=== PATIENT | female | born 1960 | race Caucasian/White ===

== ENCOUNTER 2019-04-25 08:13 | Day surgery (SDC) | payer BC, OTHER ==
[2019-04-18 10:30] LABS: BASOPHILS % (AUTO) 0.3 % (0-1); EOSINOPHILS # (AUTO) 0.1 X10'3 (0-0.9); EOSINOPHILS % (AUTO) 2.5 % (0-6); LYMPHOCYTES # (AUTO) 0.8 X10'3 (1.1-4.8); LYMPHOCYTES % (AUTO) 13.9 % (21-51); MEAN CORPUSCULAR HEMOGLOBIN 29.9 PG (27.0-31.0); MEAN CORPUSCULAR HGB CONC 32.9 g/dL (33.0-36.5); MEAN CORPUSCULAR VOLUME 90.8 FL (78-98); MEAN PLATELET VOLUME 8.3 FL (7.4-10.4); MONOCYTES # (AUTO) 0.4 X10'3 (0-0.9); MONOCYTES % (AUTO) 7.9 % (2-12); NEUTROPHILS # (AUTO) 4.2 X10'3 (1.8-7.7); NEUTROPHILS % (AUTO) 75.4 % (42-75); PRE OP HEMOGLOBIN 12.8 g/dL (12.0-16.0); PRE OP PLATELET COUNT 225 X10'3 (140-440); RED BLOOD COUNT 4.29 X10'6 (4.20-5.60); RED CELL DISTRIBUTION WIDTH 12.9 % (11.5-14.5)
[2019-04-18 10:31] LABS: ALBUMIN 3.3 G/DL (3.4-5.0); ALKALINE PHOSPHATASE 58 IU/L (46-116); BLOOD UREA NITROGEN 18 MG/DL (7-18); BUN/CREATININE RATIO 26.9 (6.6-38.0); CALCIUM 8.9 MG/DL (8.5-10.1); CHLORIDE 107 MMOL/L (99-107); CREATININE 0.67 MG/DL (0.40-0.90); PRE OP ALT 27 U/L (30-65); PRE OP ANION GAP 4 (8-16); PRE OP AST 17 U/L (10-37); PRE OP BILIRUB, TOTAL 0.3 MG/DL (0.0-1.0); PRE OP GLUCOSE 80 MG/DL (70-104); PRE OP POTASSIUM 3.9 MMOL/L (3.4-5.1); PRE OP SODIUM 141 MMOL/L (135-145); TOTAL CARBON DIOXIDE 30.2 MMOL/L (24-32); TOTAL PROTEIN 6.7 G/DL (6.4-8.2); eGFR 90 ML/MIN
[2019-04-25] VITALS (10 sets, daily range): BP systolic 104–127; BP diastolic 68–74
[~2019-04-25] VITALS: Ht 165.1 cm; Wt 70.4 kg
[~2019-04-25 08:13] MED LIST: ESCI5TAB PO; ESTR1TAB19 PO
[2019-04-25] MEDS ORDERED: scopolamine 1.5mg patch.TD72 TD ONE (08:30)
[2019-04-25] MEDS ORDERED: ringers solution, lacted 1,000 ML IV SCH ×2 (08:30→10:11)
[2019-04-25] MEDS ORDERED: famotidine 20mg tablet PO ONE (08:30)
[2019-04-25] MEDS ORDERED: cefazolin/dext.iso 2gm/100 ML IV ONE (08:30)
[2019-04-25] MEDS ORDERED: bacitracin 15gm ointment TP ONE (09:44)
[2019-04-25] MEDS ORDERED: ceFAZolin 1000mg inj ONE (09:44)
[2019-04-25] MEDS ORDERED: sevoflurane 250ml liquid IH ONE (10:11)
[2019-04-25] MEDS ORDERED: dexamethasone sod phosphate 10mg/ml inj ONE (10:11)
[2019-04-25] MEDS ORDERED: acetaminophen 1,000mg/100ml IV 100 ML IV ONE (10:14)
[2019-04-25] MEDS ORDERED: ondansetron/PF 4mg/2ml inj IV PRN (10:15)
[2019-04-25] MEDS ORDERED: labetalol 20mg/4ml (5mg/ml) syringe IV PRN (10:15)
[2019-04-25] MEDS ORDERED: fentaNYL/PF 50MCG/1 ML 2ML syringe IV PRN ×2 (10:15)
[2019-04-25] MEDS ORDERED: hydrALAZINE 20mg/ml inj. IV PRN (10:15)
[2019-04-25] MEDS ORDERED: morphine 4 MG/ML inj SYRINge IV PRN ×2 (10:15)
[2019-04-25] MEDS ORDERED: morphine 10mg/ml inj. ONE (10:16)
[2019-04-25] MEDS ORDERED: propofol inj 20 ML IV ONE ×2 (10:34)
[2019-04-25] MEDS ORDERED: LIDOcaine 2% (20mg/ml) 5ml vial ONE (10:34)
[2019-04-25] MEDS ORDERED: ondansetron/PF 4mg/2ml inj ONE (10:34)
[2019-04-25] MEDS ORDERED: BUPIVAcaine/PF 2.5mg/ml (0.25%) 10ml vial ONE (10:55)
--- NOTE | 2019-04-25 11:15 | NUR ---
Received from OR via , accompanied by Anesthesiologist DR OLEARY and report given by Anesthesiolgist. AWAKENS TO VOICE. VITALS STABLE. SPLINT DI. SYDNI PAIN. FINGERS WARM AND PINK.
--- NOTE | 2019-04-25 11:55 | NUR ---
Report called to receiving nurse. Transferred via [facility]ED Belongings . Special Issues communicated to receiving nurse. AWAKE AND ORIENTED. VITALS STABLE. DRESSING DI. STATES PAIN MUCH IMPROVED. TO ORTHO RM [id number] AT THIS TIME.
--- NOTE | 2019-04-25 12:55 | NUR ---
AWAKE AND ORIENTED. VITALS STABLE. SYDNI PAIN. LUE IN A SIMPLE SLING. STATES TASHA IS NUMB. HOME WITH HER SPOUSE. AT THIS TIME.
== END 2019-04-25 12:55 | disposition home or self-care (01) ==
LOC: PAS 08:13
PROVIDERS: ATTEND Orthopaedic Surgery
DX: M77.12 Lateral epicondylitis, left elbow (principal); G89.18 Other acute postprocedural pain; Z79.899 Other long term (current) drug therapy; Z72.89 Other problems related to lifestyle; Z90.710 Acquired absence of both cervix and uterus; Z98.890 Other specified postprocedural states; F41.9 Anxiety disorder, unspecified
CPT/HCPCS: 24358; 36415; 64417; 76942; 80053; 82948; 85025; 93005; A6222; J0131; J0690; J1100; J2001; J2270; J2405; J2704; J3490; A4565; A6449; A7000; J7120

== ENCOUNTER 2021-06-17 12:37 | Emergency (ER) | payer BC, OTHER ==
[~2021-06-17] VITALS: Ht 165.1 cm; Wt 69.0 kg
[2021-06-17 13:34] LABS: BASOPHILS % (AUTO) 0.6 % (0-1); EOSINOPHILS # (AUTO) 0.5 X10'3 (0-0.9); EOSINOPHILS % (AUTO) 8.3 % (0-6); HEMATOCRIT 41.1 % (35.0-45.0); HEMOGLOBIN 13.7 g/dl (12.0-16.0); LYMPHOCYTES # (AUTO) 1.3 X10'3 (1.1-4.8); LYMPHOCYTES % (AUTO) 22.1 % (21-51); MEAN CORPUSCULAR HEMOGLOBIN 30.5 PG (27.0-31.0); MEAN CORPUSCULAR HGB CONC 33.2 g/dL (33.0-36.5); MEAN CORPUSCULAR VOLUME 91.7 FL (78-98); MONOCYTES # (AUTO) 0.3 X10'3 (0-0.9); MONOCYTES % (AUTO) 5.8 % (2-12); NEUTROPHILS # (AUTO) 3.8 X10'3 (1.8-7.7); NEUTROPHILS % (AUTO) 63.2 % (42-75); PLATELET COUNT 250 X10'3 (140-440); RED BLOOD COUNT 4.48 X10'6 (4.20-5.60); RED CELL DISTRIBUTION WIDTH 13.2 % (11.5-14.5); WHITE BLOOD COUNT 6.1 X10'3 (4.5-11.0)
[2021-06-17 13:40] LABS: ALANINE AMINOTRANSFERASE 24 U/L (12-78); ALBUMIN 3.7 G/DL (3.4-5.0); ALBUMIN/GLOBULIN RATIO 1.1 (1.1-1.5); ALKALINE PHOSPHATASE 43 IU/L (46-116); ANION GAP 9 (8-16); ASPARTATE AMINO TRANSFERASE 18 U/L (10-37); BILIRUBIN,TOTAL 0.4 MG/DL (0.1-1.0); BLOOD UREA NITROGEN 18 MG/DL (7-18); BUN/CREATININE RATIO 26.5 (6.6-38.0); CALCIUM 8.4 MG/DL (8.5-10.1); CHLORIDE 103 MMOL/L (99-107); CREATININE 0.68 MG/DL (0.40-0.90); GLUCOSE 95 MG/DL (70-104); POTASSIUM 3.6 MMOL/L (3.5-5.1); SODIUM 138 MMOL/L (135-145); TOTAL CARBON DIOXIDE 26.2 MMOL/L (24-32); eGFR 88 ML/MIN
[2021-06-17] MEDS ORDERED: aspirin 325mg tablet PO ONE (15:35)
[2021-06-17 16:31] VITALS: BP 98/64
== END 2021-06-17 16:45 | disposition home or self-care (01) ==
LOC: ER 12:37
DX: R07.89 Other chest pain (principal); R06.02 Shortness of breath; R11.0 Nausea; Z79.899 Other long term (current) drug therapy
CPT/HCPCS: 36415; 71045; 80053; 83880; 84484; 85025; 93005; 99285

== ENCOUNTER 2024-01-27 07:41 | Day surgery (SDC) | payer BC, OTHER ==
[2024-01-17 15:26] LABS: BASOPHILS % (AUTO) 0.3 % (0-1); EOSINOPHILS # (AUTO) 0.2 X10'3 (0-0.9); EOSINOPHILS % (AUTO) 3.7 % (0-6); LYMPHOCYTES # (AUTO) 1.4 X10'3 (1.1-4.8); LYMPHOCYTES % (AUTO) 23.6 % (21-51); MEAN CORPUSCULAR HEMOGLOBIN 31.3 PG (27.0-31.0); MEAN CORPUSCULAR VOLUME 92.2 FL (78-98); MEAN PLATELET VOLUME 7.8 FL (7.4-10.4); MONOCYTES # (AUTO) 0.4 X10'3 (0-0.9); MONOCYTES % (AUTO) 6.2 % (2-12); NEUTROPHILS % (AUTO) 66.2 % (42-75); PRE OP HEMOGLOBIN 13.6 g/dL (12.0-16.0); PRE OP PLATELET COUNT 269 X10'3 (140-440); PRE OP WHITE BLOOD COUNT 6.1 10'3 (4.8-10.8); RED BLOOD COUNT 4.34 X10'6 (4.20-5.60); RED CELL DISTRIBUTION WIDTH 12.6 % (11.5-14.5)
[2024-01-17 15:42] LABS: ALBUMIN 2.9 G/DL (3.4-5.0); ALBUMIN/GLOBULIN RATIO 1.1 (1.1-1.5); ALKALINE PHOSPHATASE 43 IU/L (46-116); BLOOD UREA NITROGEN 16 MG/DL (7-18); BUN/CREATININE RATIO 26.2 (10.0-20.0); CALCIUM 7.8 MG/DL (8.5-10.1); CHLORIDE 108 MMOL/L (99-107); CREATININE 0.61 MG/DL (0.40-0.90); PRE OP ALT 24 U/L (30-65); PRE OP ANION GAP 4 (8-16); PRE OP AST 20 U/L (10-37); PRE OP BILIRUB, TOTAL 0.4 MG/DL (0.0-1.0); PRE OP GLUCOSE 110 MG/DL (70-104); PRE OP POTASSIUM 3.6 MMOL/L (3.4-5.1); PRE OP SODIUM 141 MMOL/L (135-145); TOTAL CARBON DIOXIDE 28.7 MMOL/L (24-32); TOTAL PROTEIN 5.6 G/DL (6.4-8.2); eGFR > 90 ML/MIN
[~2024-01-27] VITALS: Ht 165.1 cm; Wt 68.1 kg
[~2024-01-27 07:41] MED LIST changes: -ESCI5TAB PO
[2024-01-27 07:50] VITALS: BP 106/63; PULSE 60; PULSE 98; RESP 16; TEMP 98.3; O2SAT 98
[2024-01-27] MEDS ORDERED: ringers solution, lacted 1,000 ML IV SCH (08:28)
[2024-01-27] MEDS ORDERED: famotidine 20mg tablet PO ONE (08:58)
[2024-01-27] MEDS ORDERED: BUPIVAcaine 2.5mg/ml inj 50ml vial (contains preservative) ONE (10:28)
[2024-01-27] MEDS ORDERED: bacitracin 15gm ointment TP ONE (10:28)
[2024-01-27] MEDS ORDERED: dexamethasone sod phosphate 10mg/ml inj ONE (11:37)
[2024-01-27] MEDS ORDERED: sevoflurane 250ml liquid IH ONE (11:37)
[2024-01-27] MEDS ORDERED: fentaNYL/PF 50MCG/1 ML 2ML syringe ONE (11:42)
[2024-01-27] MEDS ORDERED: midazolam 1 mg/ML 2ml injection ONE (11:44)
[2024-01-27] MEDS ORDERED: acetaminophen 1,000mg/100ml IV 100 ML IV ONE (11:48)
[2024-01-27] MEDS ORDERED: ondansetron/PF 4mg/2ml inj ONE (11:48)
[2024-01-27] MEDS ORDERED: propofol inj 20 ML IV ONE (11:48)
[2024-01-27] MEDS ORDERED: LIDOcaine 2% (20mg/ml) 5ml vial ONE (11:48)
[2024-01-27] MEDS ORDERED: ketorolac trometh. 30mg/ml inj. ONE (11:48)
[2024-01-27] MEDS: ringers solution, lacted 1,000 ML IV SCH (12:05)
[2024-01-27] MEDS ORDERED: morphine 4 MG/ML inj SYRINge IV PRN (12:05)
[2024-01-27] MEDS ORDERED: morphine 2 MG/ML inj. syringe IV PRN (12:05)
[2024-01-27] MEDS ORDERED: fentaNYL/PF 50MCG/1 ML 2ML syringe IV PRN ×2 (12:05)
[2024-01-27] MEDS ORDERED: labetalol 20mg/4ml (5mg/ml) syringe IV PRN (12:05)
[2024-01-27] MEDS ORDERED: proMETHazine 25mg rectal suppository RC PRN (12:05)
[2024-01-27] MEDS ORDERED: ondansetron/PF 4mg/2ml inj IV PRN (12:05)
[2024-01-27] MEDS ORDERED: proCHLORperazine 10 MG/2 ml inj IV PRN (12:05)
[2024-01-27] MEDS ORDERED: enalaprilat dihydrate 2.5mg/2ml vial IV PRN (12:05)
[2024-01-27] MEDS: BUPIVAcaine 2.5mg/ml inj 50ml vial (contains preservative) SQ ONE (12:16)
[2024-01-27] MEDS: bacitracin 15gm ointment TP ONE (12:17)
[2024-01-27 12:31] VITALS: BP 122/63; PULSE 69; RESP 16; O2SAT 100
[2024-01-27 12:40] VITALS: BP 122/73; PULSE 67; RESP 11; O2SAT 99
[2024-01-27] MEDS: cefazolin 2gm/D5W 100mL 100 ML IV ONE (12:47)
[2024-01-27 12:50] VITALS: BP 109/61; PULSE 61; RESP 11; O2SAT 98
[2024-01-27 13:00] VITALS: BP 102/58; PULSE 50; RESP 12; O2SAT 97
== END 2024-01-27 13:21 | disposition home or self-care (01) ==
LOC: PAS 07:41
PROVIDERS: ATTEND Podiatrist Foot & Ankle Surgery
DX: T84.84XA Pain due to internal orthopedic prosthetic devices, implants and grafts, initial encounter (principal); Z79.82 Long term (current) use of aspirin; Z79.899 Other long term (current) drug therapy; Z98.890 Other specified postprocedural states; Z72.89 Other problems related to lifestyle; Z90.710 Acquired absence of both cervix and uterus; Y83.8 Other surgical procedures as the cause of abnormal reaction of the patient, or of later complication, without mention of misadventure at the time of the procedure; Y92.89 Other specified places as the place of occurrence of the external cause
CPT/HCPCS: 20680; 36415; 73620; 80053; 82948; 85025; A6223; J0131; J1100; J1885; J2250; J2405; J2704; J3010; J3490; J7030; J7120; Z7506; Z7512; 76000; A4215; A4618; A6449